=== PATIENT | male | born 1985 | race African-American/Black ===

== ENCOUNTER 2019-07-05 12:45 | Emergency (ER) | payer OTHER ==
[~2019-07-05] VITALS: Ht 195.6 cm; Wt 108.9 kg
[2019-07-05] MEDS ORDERED: ADVIL200 M1 PO (12:58)
[2019-07-05] MEDS ORDERED: ONDANSETRON ODT8 MG PO (15:42)
[2019-07-05 16:03] VITALS: BP 111/57
== END 2019-07-05 16:05 | disposition home or self-care (01) ==
LOC: ER 12:45
DX: R11.2 Nausea with vomiting, unspecified (principal); R19.7 Diarrhea, unspecified; F17.210 Nicotine dependence, cigarettes, uncomplicated